=== PATIENT | female | born 1930 | race Caucasian/White ===

== ENCOUNTER 2019-01-07 05:30 | Emergency (ER) | payer MEDICARE ==
[~2019-01-07] VITALS: Ht 162.6 cm; Wt 57.0 kg
[~2019-01-07 05:30] MED LIST: AMLO2.5T2 PO; ASPI-496 PO; ATOR20TA PO; CALC500T93 PO; CARV12.52 PO; FURO40TA6 PO; LACT1CAP37 PO; LISI5TAB7 PO; METF10002 PO; MULT-717 PO; POTA10CA PO; SPIR25TA PO; TORS20TA PO; WARF-36 PO; WARF2.5T32 PO
--- NOTE | 2019-01-07 07:08 | NUR ---
Received report from JONAS Ashley. All questions answered. Assuming care of pt at this time. Pt sitting on gurney connected to evaluation specialist, NIBP cuff, and continous pulse ox monitor with call light within reach. Warm blanket provided. NADN. No other needs expressed.
[2019-01-07 08:04] VITALS: BP 157/60
--- NOTE | 2019-01-07 08:04 | NUR ---
Patient given discharge instructions and they have confirmed that they understand the instructions. Patient ambulatory with steady gait. Pt left with d/c paperwork and all personal belongings and a taxi voucher.
== END 2019-01-07 08:06 | disposition home or self-care (01) ==
LOC: ED 06:02
DX: R68.83 Chills (without fever) (principal); I10 Essential (primary) hypertension; E78.00 Pure hypercholesterolemia, unspecified; Z86.73 Personal history of transient ischemic attack (TIA), and cerebral infarction without residual deficits; Z90.49 Acquired absence of other specified parts of digestive tract; Z90.710 Acquired absence of both cervix and uterus; Z96.649 Presence of unspecified artificial hip joint; Z85.3 Personal history of malignant neoplasm of breast
CPT/HCPCS: 93005; 99283

== ENCOUNTER → 2019-06-11 | Outpatient (CLI) | payer MEDICARE | END | disposition home or self-care (01) | LOC: CFH 10:39 | PROVIDERS: ATTEND Internal Medicine Cardiovascular Disease | DX: I08.3 Combined rheumatic disorders of mitral, aortic and tricuspid valves (principal); I10 Essential (primary) hypertension; E11.9 Type 2 diabetes mellitus without complications; G45.9 Transient cerebral ischemic attack, unspecified; Z85.3 Personal history of malignant neoplasm of breast | CPT/HCPCS: 93306 ==